=== PATIENT | male | born 1965 | race American Indian/Alaskan Native ===

== ENCOUNTER 2017-08-07 18:25 | Emergency (ER) | payer OTHER ==
[2017-08-07 18:59] LABS: Hemoglobin 15.2 gm/dl (11.8-15.2); Mean Corpuscular HGB Conc 32 % (32-34); Mean Corpuscular Volume 74 fl (84-94); Platelet Count 198 K/mm3 (140-440); Red Blood Count 6.49 M/mm3 (3.65-5.03); Red Cell Distribution Width 16.5 % (13.2-15.2)
[2017-08-07 19:12] LABS: BUN/Creatinine Ratio 12; Blood Urea Nitrogen 17 mg/dL (9-20); Calcium 9.3 mg/dL (8.4-10.2); Hemolysis Index 5
[2017-08-07 19:31] LABS: Mean Corpuscular Hemoglobin 23 pg (28-32)
--- NOTE | 2017-08-07 19:54 | Cat Scan Report ---
FINAL REPORT PROCEDURE: CT HEAD/BRAIN WO CON TECHNIQUE: Computerized tomography of the head was performed without contrast material. HISTORY: left sided UE spasms, hx of cva COMPARISON: No prior studies are available for comparison. FINDINGS: There is encephalomalacia, compatible with chronic infarct adjacent to the right frontal horn and in the right basal ganglia. No evidence of intracranial mass, hemorrhage, acute territorial infarction, or hydrocephalus. The intracranial arteries are symmetric in density. No acute fracture is seen. Visualized paranasal sinuses and mastoids are aerated. IMPRESSION: Chronic ischemic changes. No CT evidence of acute intracranial abnormality
[2017-08-07 20:11] LABS: Bilirubin,Urine NEG (Negative); Blood,Urine NEG (Negative); Color,Urine Yellow (Yellow); Protein,Urine <15 mg/dL mg/dL (Negative); Urobilinogen,Urine < 2.0 mg/dL (<2.0); WBC,Urine < 1.0 /HPF (0.0-6.0)
[2017-08-07 21:10] LABS: Anisocytosis 1+; Platelet Estimate Consistent w Auto; Total Cells Counted 100
--- NOTE | 2017-08-07 21:13 | Emergency Department Report ---
HPI - General Chief Complaint: Medical Clearance Time Seen by Provider: 08/07/17 18:50 - HPI HPI: Mr. Colon is a 52-year-old -Luxembour[place] male presents to the ED with uncontrollable muscle spasm in neck area, mouth area stated he had the episode 1 time before and his primary care doctor give him some muscle relaxer which helped the symptoms. No fever, no chest pain, no shortness of breath, no focal weakness, no loss of bowel or urine. No history of seizures no loss of consciousness during these episodes. This episode lasted one or 2 minutes and happens every 3-4 hours and resolves on their own. ED Past Medical Hx - Past Medical History Hx Hypertension: Yes Hx CVA: Yes Hx Congestive Heart Failure: No Hx Diabetes: No Hx Renal Disease: No Hx Arthritis: No Hx Seizures: No Hx Asthma: No Hx COPD: No Hx HIV: No - Surgical History Hx Pacemaker: No - Social History Smoking Status: Never Smoker - Medications Home Medications: Home Medications Medication Instructions Recorded Confirmed Last Taken Type Amlodipine Besylate [Norvasc] 5 mg PO QDAY 03/28/17 08/07/17 08/07/17 History Gabapentin [Neurontin] 2 cap PO TID 03/28/17 08/07/17 08/07/17 History Tamsulosin [Flomax] 0.4 mg PO QDAY 03/28/17 08/07/17 08/07/17 History hydrALAZINE [Apresoline TAB] 50 mg PO BID 03/28/17 08/07/17 08/07/17 History Carvedilol 6.25 mg PO QDAY 08/07/17 08/07/17 08/07/17 History Cyclobenzaprine [Flexeril] 10 mg PO TID PRN #30 tablet 08/07/17 Unknown Rx Sertraline [Zoloft] 25 mg PO QDAY 08/07/17 08/07/17 08/07/17 History ED Review of Systems ROS: Stated complaint: LEFT LEG PAIN Other details as noted in HPI Constitutional: weakness. denies: chills, diaphoresis, fever, malaise Respiratory: denies: cough, orthopnea Gastrointestinal: denies: abdominal pain, nausea, vomiting Physical Exam - Physical Exam Vital Signs: Vital Signs 08/07/17 08/07/17 08/07/17 18:43 18:46 18:52 Temperature 98.6 F Pulse Rate 61 58 L Respiratory 20 13 16 Rate Blood Pressure Blood Pressure 170/100 [Right] O2 Sat by Pulse 97 100 Oximetry 08/07/17 08/07/17 19:19 19:33 Temperature 97.3 F L Pulse Rate Respiratory Rate Blood Pressure 150/98 Blood Pressure [Right] O2 Sat by Pulse 99 Oximetry Physical Exam: Gen. alert and oriented 3 in no distress Head atraumatic normocephalic Eyes PERR LA EOMI Chest regular rate and rhythm normal S1-S2 lungs clear bilaterally Abdomen soft nondistended Back no point tenderness paravertebral tenderness Neuro no focal deficit. Psych normal mood. ED Course Vital Signs 08/07/17 08/07/17 08/07/17 18:43 18:46 18:52 Temperature 98.6 F Pulse Rate 61 58 L Respiratory 20 13 16 Rate Blood Pressure Blood Pressure 170/100 [Right] O2 Sat by Pulse 97 100 Oximetry 08/07/17 08/07/17 19:19 19:33 Temperature 97.3 F L Pulse Rate Respiratory Rate Blood Pressure 150/98 Blood Pressure [Right] O2 Sat by Pulse 99 Oximetry ED Medical Decision Making - Lab Data Result diagrams: 08/07/17 18:50 08/07/17 18:50 Critical care attestation.: If time is entered above; I have spent that time in minutes in the direct care of this critically ill patient, excluding procedure time. ED Disposition Clinical Impression: Muscle spasm Disposition: DC-01 TO HOME OR SELFCARE Is pt being admited?: No Does the pt Need Aspirin: No Condition: Stable Instructions: Spasmodic Torticollis (ED), Muscle Spasm (ED) Prescriptions: Cyclobenzaprine [Flexeril] 10 mg PO TID PRN #30 tablet PRN Reason: Muscle Spasm Referrals: MYKEL CORONA MD [Primary Care Provider] - 3-5 Days
[2017-08-07 22:02] VITALS: BP 146/92
== END 2017-08-07 22:03 | disposition home or self-care (01) ==
LOC: ED 18:25
DX: M62.838 Other muscle spasm (principal); I10 Essential (primary) hypertension; Z86.73 Personal history of transient ischemic attack (TIA), and cerebral infarction without residual deficits
CPT/HCPCS: 36415; 70450; 80048; 81001; 82550; 83735; 84484; 85007; 85025; 99284

== ENCOUNTER 2017-08-15 13:58 | Inpatient (IN) | payer OTHER ==
[2017-08-15 14:50] LABS: Basophils # (Auto) 0.1 K/mm3 (0.0-0.1); Basophils % (Auto) 1.4 % (0.0-1.8); Eosinophils # (Auto) 0.1 K/mm3 (0.0-0.4); Eosinophils % (Auto) 2.2 % (0.0-4.3); Hematocrit 47.5 % (35.5-45.6); Hemoglobin 14.9 gm/dl (11.8-15.2); Lymphocytes # (Auto) 1.4 K/mm3 (1.2-5.4); Mean Corpuscular HGB Conc 31 % (32-34); Mean Corpuscular Volume 74 fl (84-94); Monocytes # (Auto) 0.8 K/mm3 (0.0-0.8); Monocytes % (Auto) 15.6 % (0.0-7.3); Red Blood Count 6.42 M/mm3 (3.65-5.03); Red Cell Distribution Width 16.7 % (13.2-15.2)
[2017-08-15 15:03] LABS: INR 1.04 (0.87-1.13)
[2017-08-15 15:04] LABS: Partial Thromboplastin Time 48.6 Sec. (24.2-36.6)
[2017-08-15 15:05] LABS: BUN/Creatinine Ratio 16; Blood Urea Nitrogen 19 mg/dL (9-20); Calcium 9.2 mg/dL (8.4-10.2); Hemolysis Index 8
[2017-08-15 15:10] LABS: Mean Corpuscular Hemoglobin 23 pg (28-32); Platelet Count 184 K/mm3 (140-440)
--- NOTE | 2017-08-15 15:25 | Cat Scan Report ---
FINAL REPORT EXAM: CT HEAD/BRAIN WO CON HISTORY: neuro deficits < 6hrs or sx present upon awakening TECHNIQUE: CT of the head was performed. No intravenous contrast was administered. PRIORS: 08/07/2017 FINDINGS: There are unchanged areas of encephalomalacia involving right corpus callosum and right frontal lobe and right basal ganglia, not changed and probably representing old infarcts. There is no evidence of intracranial hemorrhage. There is no edema, mass effect or midline shift. There are no abnormal extra-axial fluid collections. The ventricles are appropriate for brain volume. There is no skull fracture seen. The visualized aspects of the sinuses are clear. IMPRESSION: There is no acute intracranial abnormality identified.
--- NOTE | 2017-08-15 16:55 | Emergency Department Report ---
HPI - General Chief Complaint: Neuro Symptoms/Deficit Time Seen by Provider: 08/15/17 16:32 - HPI HPI: Patient with history of CVA, and chronic left-sided weakness, was brought to the ED after he had some facial droop, left-sided twitching, left-sided facial pain. There is symptoms occurred when he was getting speech therapy, and were accompanied by an episode in which she was just staring blank in the air without response. He was sent to ED by a speech therapist for further evaluation. In ED patient denies any symptoms. Stated his previous symptoms had resolved. He is accompanied by 2 sisters with up with history. ED Past Medical Hx - Past Medical History Hx Hypertension: Yes Hx CVA: Yes (left) Hx Congestive Heart Failure: No Hx Diabetes: No Hx Renal Disease: No Hx Arthritis: No Hx Seizures: No Hx Asthma: No Hx COPD: No Hx HIV: No - Surgical History Hx Pacemaker: No - Social History Smoking Status: Former Smoker Substance Use Type: None - Medications Home Medications: Home Medications Medication Instructions Recorded Confirmed Last Taken Type Amlodipine Besylate [Norvasc] 5 mg PO QDAY 03/28/17 08/07/17 08/07/17 History Gabapentin [Neurontin] 2 cap PO TID 03/28/17 08/07/17 08/07/17 History Tamsulosin [Flomax] 0.4 mg PO QDAY 03/28/17 08/07/17 08/07/17 History hydrALAZINE [Apresoline TAB] 50 mg PO BID 03/28/17 08/07/17 08/07/17 History Carvedilol 6.25 mg PO QDAY 08/07/17 08/07/17 08/07/17 History Cyclobenzaprine [Flexeril] 10 mg PO TID PRN #30 tablet 08/07/17 Unknown Rx Sertraline [Zoloft] 25 mg PO QDAY 08/07/17 08/07/17 08/07/17 History ED Review of Systems ROS: Stated complaint: NEURO SYMPTOMS Other details as noted in HPI Constitutional: no symptoms reported Musculoskeletal: denies: as per HPI Skin: denies: as per HPI Neurological: weakness. denies: numbness Physical Exam - Physical Exam Vital Signs: Vital Signs 08/15/17 14:13 Temperature 98.7 F Pulse Rate 61 Respiratory 17 Rate Blood Pressure 148/87 O2 Sat by Pulse 98 Oximetry Physical Exam: - Physical Exam Physical Exam: - General Limitations: No Limitations General appearance: alert, in no apparent distress, obese - Head Head exam: Present: atraumatic, normocephalic - Eye Eye exam: Present: normal appearance - ENT ENT exam: Present: mucous membranes moist - Neck Neck exam: Present: normal inspection - Respiratory Respiratory exam: Present: normal lung sounds bilaterally. Absent: respiratory distress - Cardiovascular Cardiovascular Exam: Present: normal rhythm, tachycardia. Absent: systolic murmur, diastolic murmur, rubs, gallop - GI/Abdominal GI/Abdominal exam: Present: soft, normal bowel sounds - Extremities Exam Extremities exam: Present: normal inspection - Back Exam Back exam: Present: normal inspection - Neurological Exam Neurological exam: Present: alert, oriented X3, chronic left-sided weakness. - Psychiatric Psychiatric exam: normal affect and mood - Skin Skin exam: Present: warm, dry, intact, normal color. Absent: rash ED Course Vital Signs 08/15/17 14:13 Temperature 98.7 F Pulse Rate 61 Respiratory 17 Rate Blood Pressure 148/87 O2 Sat by Pulse 98 Oximetry ED Medical Decision Making - Lab Data Result diagrams: 08/15/17 14:32 08/15/17 14:32 Critical care attestation.: If time is entered above; I have spent that time in minutes in the direct care of this critically ill patient, excluding procedure time. ED Disposition Clinical Impression: TIA (transient ischemic attack) Qualifiers: Transient cerebral ischemia type: unspecified Qualified Code(s): G45.9 - Transient cerebral ischemic attack, unspecified Disposition: DC-09 OP ADMIT IP TO THIS HOSP Is pt being admited?: Yes Does the pt Need Aspirin: No Condition: Stable Referrals: PRIMARY CARE, [Primary Care Provider] - 3-5 Days
[2017-08-15] MEDS ORDERED: FLEXERIL PO PRN (18:57)
[2017-08-15] MEDS ORDERED: PROVENTIL IH PRN (19:00)
[2017-08-15] MEDS ORDERED: PHENERGAN PR PRN (19:00)
[2017-08-15] MEDS ORDERED: TYLENOL PO PRN (19:00)
[2017-08-15] MEDS ORDERED: MILK OF MAGNESIA PO PRN (19:00)
[2017-08-15] MEDS ORDERED: SODIUM CHLORIDE FLUSH SYRINGE 10 ML IV PRN (19:00)
[2017-08-15] MEDS ORDERED: ZOFRAN IV PRN (19:00)
[2017-08-15] MEDS ORDERED: REGLAN PO PRN (19:00)
[2017-08-15] MEDS ORDERED: DULCOLAX PR PRN (19:00)
[2017-08-15] MEDS ORDERED: AMBIEN PO PRN (19:00)
[2017-08-15] MEDS ORDERED: PERCOCET 5/325 PO PRN (19:00)
--- NOTE | 2017-08-15 19:16 | History and Physical Report ---
History of Present Illness Date of examination: 08/15/17 Date of admission: 08/15/17 17:14 Chief complaint: Slurred speech History of present illness: 52-year-old -[place] male with past medical history significant for CVA with residual left-sided weakness, hypertension was brought from physical/ speech therapy for the complaints of slurred speech, feeling funny sensation on the left face. Per his patient has slurred speech since this morning. Patient said he has feeling of tightness on the left side of his body since he has stroke. Patient denied any seizure activity, patient had left-sided facial droop since the previous stroke. Patient ambulate with a cane. Patient denied chest pain, fever or cough. Agent has physical therapy and speech therapy since June 2017. REVIEW OF SYSTEMS: GENERAL: no weight change, no fatigue, no fever HEAD: no head ache EYES: no blurry vision, no acute visual loss EARS: no hearing loss, no discharge, no earache NOSE: no stuffiness, no sneezing, no discharge MOUTH, THROAT AND NECK: no bleeding gums, no sore throat, no swollen neck CARDIAC: no palpitations, no dyspnea on exertion, no orthopnea, no PND, no edema , no chest pain RESPIRATORY: no shortness of breath, no wheeze, no cough, no sputum, no hemoptysis, no asthma GI: no decreased appetite, no nausea, no vomiting, no dysphagia, no diarrhea, no constipation, no abdominal pain URINARY: no change in frequency, no urgency, no polyuria, no hematuria, no incontinence MUSCULOSKELETAL: no muscle weakness, no pain, no joint stiffness NEUROLOGIC: As stated in the HPI. HEMATOLOGIC: no anemia, no easy bruising SKIN: no rashes ENDOCRINE: no heat/cold intolerance, no polyuria, no polydipsia, no thyroid problems, no diabetes PSYCHIATRIC: no anxiety, no depression, no suicidal ideations Past History Past Medical History: No medical history, hypertension, stroke Past Surgical History: No surgical history Social history: full code. denies: smoking, alcohol abuse, prescription drug abuse, IV drug use Family history: no significant family history Medications and Allergies Allergies Allergy/AdvReac Type Severity Reaction Status Date / Time No Known Allergies Allergy Verified 05/13/13 09:16 Home Medications Medication Instructions Recorded Confirmed Last Taken Type Amlodipine Besylate [Norvasc] 5 mg PO QDAY 03/28/17 08/07/17 08/07/17 History Gabapentin [Neurontin] 2 cap PO TID 03/28/17 08/07/17 08/07/17 History Tamsulosin [Flomax] 0.4 mg PO QDAY 03/28/17 08/07/17 08/07/17 History hydrALAZINE [Apresoline TAB] 50 mg PO BID 03/28/17 08/07/17 08/07/17 History Carvedilol 6.25 mg PO QDAY 08/07/17 08/07/17 08/07/17 History Cyclobenzaprine [Flexeril] 10 mg PO TID PRN #30 tablet 08/07/17 Unknown Rx Sertraline [Zoloft] 25 mg PO QDAY 08/07/17 08/07/17 08/07/17 History Active Meds: Active Medications Acetaminophen (Tylenol) 650 mg PO Q4H PRN PRN Reason: Pain, Mild (1-3) Albuterol (Proventil) 2.5 mg IH Q3HRT PRN PRN Reason: Shortness Of Breath Amlodipine Besylate (Norvasc) 5 mg PO QDAY [facility] Aspirin (Aspirin) 325 mg PO QDAY [facility] Bisacodyl (Dulcolax) 10 mg ND QDAY PRN PRN Reason: Constipation Carvedilol (Coreg) 6.25 mg PO QDAY [facility] Clopidogrel Bisulfate (Plavix) 75 mg PO QDAY [facility] Cyclobenzaprine HCl (Flexeril) 10 mg PO TID PRN PRN Reason: Muscle Spasm Docusate Sodium (Colace) 100 mg PO BID [facility] Famotidine (Pepcid) 20 mg PO BID [facility] Gabapentin (Neurontin) 600 mg PO TID [facility] Hydralazine HCl (Apresoline) 50 mg PO BID [facility] Magnesium Hydroxide (Milk Of Magnesia) 30 ml PO Q4H PRN PRN Reason: Constipation Metoclopramide HCl (Reglan) 10 mg PO Q6H PRN PRN Reason: Nausea And Vomiting Ondansetron HCl (Zofran) 4 mg IV Q8H PRN PRN Reason: N/V unrelieved by Reglan Oxycodone/Acetaminophen (Percocet 5/325) 1 tab PO Q6H PRN PRN Reason: Pain, Moderate (4-6) Promethazine HCl (Phenergan) 25 mg ND Q6H PRN PRN Reason: Nausea And Vomiting Sertraline HCl (Zoloft) 25 mg PO QDAY [facility] Sodium Chloride (Sodium Chloride Flush Syringe 10 Ml) 10 ml INJ PRN PRN PRN Reason: LINE FLUSH Tamsulosin HCl (Flomax) 0.4 mg PO QDAY [facility] Zolpidem Tartrate (Ambien) 5 mg PO QHS PRN PRN Reason: Insomnia Exam - Physical Exam Narrative exam: Not in cardiopulmonary distress. The patient appeared well nourished and normally developed. Vital signs as documented. Head exam is unremarkable. No scleral icterus . Neck is without jugular venous distension, thyromegaly, or carotid bruits. Lungs are clear to auscultation. Cardiac exam reveals regular rate and Rhythm. First and second heart sounds normal. No murmurs, rubs or gallops. Abdominal exam reveals normal bowel sounds, no masses, no organomegaly and no aortic enlargement. Extremities are nonedematous and both femoral and pedal pulses are normal. 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 - Constitutional Vitals: Temp Pulse Resp BP Pulse Ox 98.7 F 52 L 20 134/88 98 08/15/17 14:13 08/15/17 18:15 08/15/17 18:15 08/15/17 18:15 08/15/17 18:15 Results - Labs CBC & Chem 7: 08/15/17 14:32 08/15/17 14:32 Labs: Laboratory Last Values WBC 5.3 K/mm3 (4.5-11.0) 08/15/17 14:32 RBC 6.42 M/mm3 (3.65-5.03) H 08/15/17 14:32 Hgb 14.9 gm/dl (11.8-15.2) 08/15/17 14:32 Hct 47.5 % (35.5-45.6) H 08/15/17 14:32 MCV 74 fl (84-94) L 08/15/17 14:32 MCH 23 pg (28-32) L 08/15/17 14:32 MCHC 31 % (32-34) L 08/15/17 14:32 RDW 16.7 % (13.2-15.2) H 08/15/17 14:32 Plt Count 184 K/mm3 (140-440) 08/15/17 14:32 Lymph % (Auto) 27.0 % (13.4-35.0) 08/15/17 14:32 [place] % (Auto) 15.6 % (0.0-7.3) H 08/15/17 14:32 Eos % (Auto) 2.2 % (0.0-4.3) 08/15/17 14:32 Baso % (Auto) 1.4 % (0.0-1.8) 08/15/17 14:32 Lymph # 1.4 K/mm3 (1.2-5.4) 08/15/17 14:32 [place] # 0.8 K/mm3 (0.0-0.8) 08/15/17 14:32 Eos # 0.1 K/mm3 (0.0-0.4) 08/15/17 14:32 Baso # 0.1 K/mm3 (0.0-0.1) 08/15/17 14:32 Seg Neutrophils % 53.8 % (40.0-70.0) 08/15/17 14:32 Seg Neutrophils # 2.8 K/mm3 (1.8-7.7) 08/15/17 14:32 PT 14.1 Sec. (12.2-14.9) 08/15/17 14:32 INR 1.04 (0.87-1.13) 08/15/17 14:32 APTT 48.6 Sec. (24.2-36.6) H 08/15/17 14:32 Thrombin Time 17.1 Sec. (15.1-19.6) 08/15/17 14:32 Sodium 141 mmol/L (137-145) 08/15/17 14:32 Potassium 3.9 mmol/L (3.6-5.0) 08/15/17 14:32 Chloride 102.8 mmol/L (98-107) 08/15/17 14:32 Carbon Dioxide 27 mmol/L (22-30) 08/15/17 14:32 Anion Gap 15 mmol/L 08/15/17 14:32 BUN 19 mg/dL (9-20) 08/15/17 14:32 Creatinine 1.2 mg/dL (0.8-1.5) 08/15/17 14:32 Estimated GFR > 60 ml/min 08/15/17 14:32 BUN/Creatinine Ratio 16 % 08/15/17 14:32 Glucose 83 mg/dL (75-100) 08/15/17 14:32 POC Glucose 69 (70-105) L 08/15/17 17:03 Calcium 9.2 mg/dL (8.4-10.2) 08/15/17 14:32 Troponin T < 0.010 ng/mL (0.00-0.029) 08/15/17 14:32 - Imaging and Cardiology CT Scan - head: report reviewed (no acute intracranial abnormalities) Assessment and Plan Assessment and plan: CVA - We'll do CVA workup - Tele neurologist Dr. Deleon was consulted and recommended against TPA, and recommended to admit the patient for CVA work up - Dr. Quintanilla consulted History of CVA with right-sided weakness - Continue physical therapy, speech therapy - Advised Plavix and his medication regimen Hypertension - Continue home medications DVT prophylaxis - Lovenox Disposition - Admit to telemetry floor. Advance Directives: Yes VTE prophylaxis?: Chemical Plan of care discussed with patient/family: Yes
[2017-08-15 21:14] LABS: INR 1.06 (0.87-1.13)
[2017-08-15] MEDS: NEURONTIN PO SCH (21:56)
[2017-08-15] MEDS: APRESOLINE PO SCH (21:58)
[2017-08-15] MEDS: PEPCID PO SCH (21:58)
[2017-08-15] MEDS: COLACE PO SCH (21:59)
[2017-08-15] MEDS ORDERED: LOVENOX SUB-Q SCH (22:00)
[2017-08-16 06:29] LABS: Hematocrit 43.8 % (35.5-45.6); Hemoglobin 13.7 gm/dl (11.8-15.2); Mean Corpuscular HGB Conc 31 % (32-34); Mean Corpuscular Volume 74 fl (84-94); Platelet Count 180 K/mm3 (140-440); Red Blood Count 5.95 M/mm3 (3.65-5.03); Red Cell Distribution Width 16.6 % (13.2-15.2)
[2017-08-16 06:31] LABS: Mean Corpuscular Hemoglobin 23 pg (28-32)
[2017-08-16 06:48] LABS: BUN/Creatinine Ratio 12; Blood Urea Nitrogen 16 mg/dL (9-20); Calcium 8.7 mg/dL (8.4-10.2); HDL Cholesterol 34 mg/dL (40-59); Hemolysis Index 4
[2017-08-16 07:45] LABS: LDL Cholesterol,Direct 109 mg/dL (50-130)
[2017-08-16 08:01] LABS: Total Cells Counted 100
[2017-08-16 08:02] LABS: Anisocytosis 1+; Giant Platelets Few; Helmet Cells Rare; Hypochromasia 1+; Large Platelets Few; Ovalocytes 2+
[2017-08-16] MEDS ORDERED: ASPIRIN PO SCH (10:00)
[2017-08-16] MEDS ORDERED: ZOLOFT PO SCH (10:00)
[2017-08-16] MEDS ORDERED: PLAVIX PO SCH (10:00)
[2017-08-16] MEDS ORDERED: FLOMAX PO SCH (10:00)
[2017-08-16] MEDS ORDERED: NORVASC PO SCH (10:00)
[2017-08-16] MEDS ORDERED: COREG PO SCH (10:00)
--- NOTE | 2017-08-16 11:41 | Magnetic Resonance Report ---
MRI scan of brain: Next History: Stroke. Technique: Multiplanar multisequence images were obtained without contrast injection. Findings: No evidence of restricted diffusion. Ventricles are midline in location. Focal area of low attenuation in the right basal ganglia and the right frontal lobe and parietal lobe suggestive chronic infarct. Periventricular areas of increased signal intensity without restricted diffusion. Normal brainstem and cerebellum. No extra-axial fluid collection. Normal sinuses and mastoid air cells. Impression: No evidence of acute ischemic. Chronic ischemic/lacunar infarct changes right basal ganglia right frontal lobe and right parietal area. Small vessel ischemic changes bilaterally.
--- NOTE | 2017-08-16 11:52 | Magnetic Resonance Report ---
MRA of brain: History: Stroke. Findings: The vessels or tetlin of [place] are widely patent. No evidence of aneurysm, stenoses or occlusion. No evidence of dissection. Codominant vertebral arteries with normal basilar artery. Bilateral normal posterior communicating arteries. Impression: Essentially negative MRA of brain .
[2017-08-16 12:07] VITALS: BP 123/80
[2017-08-16] MEDS: COLACE PO SCH (12:08)
[2017-08-16] MEDS: NEURONTIN PO SCH ×2 (12:11→16:09)
[2017-08-16] MEDS: PEPCID PO SCH (12:11)
[2017-08-16] MEDS: APRESOLINE PO SCH (12:12)
--- NOTE | 2017-08-16 15:32 | Consultation ---
History of Present Illness Consult date: 08/16/17 History of present illness: full note is dictated and patient's MRI / MRA are negativ for recurrent stroke suspect the attack was seizure based but will check EEG full note dictated plan to follow explained dx to patient Past History Past Medical History: No medical history, hypertension, stroke Past Surgical History: No surgical history Social history: full code. denies: smoking, alcohol abuse, prescription drug abuse, IV drug use Family history: no significant family history Medications and Allergies Allergies Allergy/AdvReac Type Severity Reaction Status Date / Time No Known Allergies Allergy Verified 05/13/13 09:16 Home Medications Medication Instructions Recorded Confirmed Last Taken Type Amlodipine Besylate [Norvasc] 5 mg PO QDAY 03/28/17 08/07/17 08/07/17 History Gabapentin [Neurontin] 2 cap PO TID 03/28/17 08/07/17 08/07/17 History Tamsulosin [Flomax] 0.4 mg PO QDAY 03/28/17 08/07/17 08/07/17 History hydrALAZINE [Apresoline TAB] 50 mg PO BID 03/28/17 08/07/17 08/07/17 History Carvedilol 6.25 mg PO QDAY 08/07/17 08/07/17 08/07/17 History Cyclobenzaprine [Flexeril] 10 mg PO TID PRN #30 tablet 08/07/17 Unknown Rx Sertraline [Zoloft] 25 mg PO QDAY 08/07/17 08/07/17 08/07/17 History Active Meds: Active Medications Acetaminophen (Tylenol) 650 mg PO Q4H PRN PRN Reason: Pain, Mild (1-3) Albuterol (Proventil) 2.5 mg IH Q3HRT PRN PRN Reason: Shortness Of Breath Amlodipine Besylate (Norvasc) 5 mg PO QDAY [facility] Last Admin: 08/16/17 12:12 Dose: 5 mg Aspirin (Aspirin) 325 mg PO QDAY [facility] Last Admin: 08/16/17 12:11 Dose: 325 mg Bisacodyl (Dulcolax) 10 mg IA QDAY PRN PRN Reason: Constipation Carvedilol (Coreg) 6.25 mg PO QDAY [facility] Last Admin: 08/16/17 12:11 Dose: 6.25 mg Clopidogrel Bisulfate (Plavix) 75 mg PO QDAY [facility] Last Admin: 08/16/17 12:12 Dose: 75 mg Cyclobenzaprine HCl (Flexeril) 10 mg PO TID PRN PRN Reason: Muscle Spasm Docusate Sodium (Colace) 100 mg PO BID [facility] Last Admin: 08/16/17 12:08 Dose: Not Given Enoxaparin Sodium (Lovenox) 40 mg SUB-Q QDAY@2200 [facility] Last Admin: 08/15/17 21:56 Dose: 40 mg Famotidine (Pepcid) 20 mg PO BID [facility] Last Admin: 08/16/17 12:11 Dose: 20 mg Gabapentin (Neurontin) 600 mg PO TID [facility] Last Admin: 08/16/17 12:11 Dose: 600 mg Hydralazine HCl (Apresoline) 50 mg PO BID [facility] Last Admin: 08/16/17 12:12 Dose: 50 mg Magnesium Hydroxide (Milk Of Magnesia) 30 ml PO Q4H PRN PRN Reason: Constipation Metoclopramide HCl (Reglan) 10 mg PO Q6H PRN PRN Reason: Nausea And Vomiting Ondansetron HCl (Zofran) 4 mg IV Q8H PRN PRN Reason: N/V unrelieved by Reglan Oxycodone/Acetaminophen (Percocet 5/325) 1 tab PO Q6H PRN PRN Reason: Pain, Moderate (4-6) Promethazine HCl (Phenergan) 25 mg IA Q6H PRN PRN Reason: Nausea And Vomiting Sertraline HCl (Zoloft) 25 mg PO QDAY [facility] Last Admin: 08/16/17 12:12 Dose: 25 mg Sodium Chloride (Sodium Chloride Flush Syringe 10 Ml) 10 ml IV PRN PRN PRN Reason: LINE FLUSH Tamsulosin HCl (Flomax) 0.4 mg PO QDAY [facility] Last Admin: 08/16/17 12:11 Dose: 0.4 mg Zolpidem Tartrate (Ambien) 5 mg PO QHS PRN PRN Reason: Insomnia Physical Examination - Vital Signs Vital Signs: Vital Signs Temp Pulse Resp BP Pulse Ox 98.7 F 61 17 148/87 98 08/15/17 14:13 08/15/17 14:13 08/15/17 14:13 08/15/17 14:13 08/15/17 14:13 Results - Laboratory Findings CBC and BMP: 08/16/17 06:06 08/16/17 06:06 Abnormal Lab Findings: Abnormal Labs 08/15/17 08/15/17 08/15/17 14:32 14:32 17:03 RBC 6.42 H Hct 47.5 H MCV 74 L MCH 23 L MCHC 31 L RDW 16.7 H [place] % (Auto) 15.6 H Seg Neuts % (Manual) Lymphocytes % (Manual) Monocytes % (Manual) Eosinophils % (Manual) Basophils % (Manual) Seg Neutrophils # Man Basophils # (Manual) APTT 48.6 H Potassium POC Glucose 69 L HDL Cholesterol 08/16/17 08/16/17 08/16/17 06:06 06:06 11:47 RBC 5.95 H Hct MCV 74 L MCH 23 L MCHC 31 L RDW 16.6 H [place] % (Auto) Seg Neuts % (Manual) 28.0 L Lymphocytes % (Manual) 47.0 H Monocytes % (Manual) 15.0 H Eosinophils % (Manual) 5.0 H Basophils % (Manual) 5.0 H Seg Neutrophils # Man 1.3 L Basophils # (Manual) 0.2 H APTT Potassium 3.5 L POC Glucose 170 H HDL Cholesterol 34 L
--- NOTE | 2017-08-16 16:51 | Discharge Summary ---
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 Consult to Dietitian/Nutrition [CONS] Routine Physician Instructions: Reason For Exam: Reason for Consult: Nutrition Recommendations Reason for Consult: Diet education Occupational Therapy Evaluate and Treat [CONS] Routine Comment: Reason For Exam: Neuro deficits Physical Therapy Evaluation and Treat [CONS] Routine Comment: Reason For Exam: Neuro deficits 08/15/17 19:04 Speech Therapy Evaluation and Treat [CONS] Routine Reason For Exam: swallow eval 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 Hospitalization Reason for admission: TIA Condition: Stable Disposition: DC-01 TO HOME OR SELFCARE Time spent for discharge: 31 minutes - Discharge Diagnoses (1) History of CVA with residual deficit Status: Acute (2) TIA (transient ischemic attack) Status: Acute Qualifiers: Transient cerebral ischemia type: unspecified Qualified Code(s): G45.9 - Transient cerebral ischemic attack, unspecified (3) Muscle spasm Status: Acute Core Measure Documentation - Palliative Care Palliative Care/ Comfort Measures: Not Applicable - Core Measures Any of the following diagnoses?: history only (CVA) Exam - Physical Exam Narrative exam: Not in cardiopulmonary distress. The patient appeared well nourished and normally developed. Vital signs as documented. Head exam is unremarkable. No scleral icterus . Neck is without jugular venous distension, thyromegaly, or carotid bruits. Lungs are clear to auscultation. Cardiac exam reveals regular rate and Rhythm. First and second heart sounds normal. No murmurs, rubs or gallops. Abdominal exam reveals normal bowel sounds, no masses, no organomegaly and no aortic enlargement. Extremities are nonedematous and both femoral and pedal pulses are normal. HEALTH AND SAFETY CONSULTANT: Alert and oriented 3. 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 - Constitutional Vitals: Temp Pulse Resp BP Pulse Ox 97.8 F 57 L 19 123/80 98 08/16/17 12:03 08/16/17 12:11 08/16/17 12:03 08/16/17 12:11 08/16/17 12:03 Plan Activity: advance as tolerated Weight Bearing Status: Partial Weight Bearing Diet: low cholesterol, low salt Additional Instructions: Follow at [facility] in 1-2 weeks Follow up with: PRIMARY CARE, [Primary Care Provider] - 3-5 Days Prescriptions: AtorvaSTATin [Lipitor] 20 mg PO QHS #30 tab Clopidogrel [Plavix] 75 mg PO QDAY #30 tablet
--- NOTE | 2017-08-16 19:03 | Consultation ---
HISTORY OF PRESENT ILLNESS: This is a 52-year-old black male who I had previously seen. He has a recent history of having onset of weakness of his left arm and left face. He apparently became acutely sick while he was taking physical therapy, seemed to look different, was taken to the Emergency Room where he was thought to have had a recurrent stroke, he had an old right basal ganglia infarct which is chronic and there as well as ischemic areas noted in his right parietal lobe and right frontal lobe, small vessel disease was present. The patient has since undergone an MRI scan of the brain, which is unremarkable and does not show any specific change. He has as an MRA of the brain, which is negative. Review of the Emergency Room notes regarding echocardiogram indicates the ejection fraction 60% to 65%, left ventricular function is normal. There is moderate concentric left ventricular hypertrophy, mitral valve leaflets are mildly thickened. No evidence of clot is present in the atrium. Since admission, the patient's condition has gradually improved. He feels better, not having headache, but he does have heaviness and weakness of his left side and left arm. Since being admitted, he seems to be improving. His most recent blood pressure was 148/87. He does not recall having a seizure. I did a detailed evaluation for seizure assessment and I do not get any symptoms that suggest a partial epilepsy either focal or generalized. No auras, no mental symptomatology that was suggestive of seizures such as loss of consciousness, bowel or bladder incontinence. His major symptom appears to be motor heaviness of the left side involving arm and leg. 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 PHYSICAL EXAMINATION: VITAL SIGNS: Blood pressure to be 147/80, pulse rate 80, respirations 18. NEUROLOGIC: Cranial nerves 2-12: He has a very slight degree of central facial weakness on the left side. Ocular movements are however full. He does not have any denial of hemiparesis. He is fully aware of his situation. He has marked atrophy of his left arm, a hemiparetic hand. There is no weakness in the leg however, and he has full speech. No aphasia is noted. No tremors. No asterixis. No focal seizure activity is appreciated. IMPRESSION: This patient's symptomatology certainly indicates he may have had a seizure. I did notice from going over the ED note that the speech therapist noted that there was a rather abrupt change in his condition. From looking at the testing, I do not think he had a TIA or recurrent stroke because of the results of the MRI and MRA as well as the echo. I will go back over some of his old history. We will get an EEG. I will follow the patient with you. JOB# [id number] MISTY/BEHZAD
== END 2017-08-16 18:20 | disposition home or self-care (01) | DRG 69 ==
LOC: ED 13:58 → 4A 17:14
PROVIDERS: ADMIT Internal Medicine; ATTEND Internal Medicine
DX: G45.9 Transient cerebral ischemic attack, unspecified (principal); I69.354 Hemiplegia and hemiparesis following cerebral infarction affecting left non-dominant side; I10 Essential (primary) hypertension; Z87.891 Personal history of nicotine dependence; Z79.899 Other long term (current) drug therapy
CPT/HCPCS: 36415; 70450; 70544; 70551; 80048; 80061; 82962; 84484; 85007; 85025; 85610; 85670; 85730; 93005; 93010; 93306; 93880; J1650